=== PATIENT | female | born 1970 | race Caucasian/White ===

== ENCOUNTER → 2020-06-28 | Outpatient (CLI) | payer OTHER | LOC: KOH-I 12:27 | DX: R10.11 Right upper quadrant pain (principal); N94.9 Unspecified condition associated with female genital organs and menstrual cycle | CPT/HCPCS: 74018 ==

== ENCOUNTER 2021-01-14 20:22 | Emergency (ER) | payer OTHER ==
[~2021-01-14] VITALS: Ht 154.9 cm; Wt 85.3 kg
== END 2021-01-15 01:36 | disposition home or self-care (01) ==
LOC: ER1 20:22
DX: Z23 Encounter for immunization (principal); U07.1 COVID-19; I10 Essential (primary) hypertension; K21.9 Gastro-esophageal reflux disease without esophagitis
CPT/HCPCS: 99284; M0243; U0002